=== PATIENT | female | born 1945 | race Two or more races ===

== ENCOUNTER 2023-07-13 17:01 | Emergency (ER) | payer OTHER ==
[~2023-07-13] VITALS: Ht 167.6 cm; Wt 60.0 kg
[2023-07-13 18:13] VITALS: PULSE 105; RESP 20; O2SAT 98
[2023-07-13 18:25] LABS: Hemoglobin 10.8 g/dL (12.2-16.2); Mean Corpuscular Hemoglobin 30.9 pg (28.0-32.0); Mean Corpuscular Hgb Conc. 32.8 g/dL (32.0-36.0); Mean Corpuscular Volume 94.1 fL (80.0-100.0); Red Blood Cells 3.51 10^6/uL (4.0-5.20)
[2023-07-13 18:31] LABS: Basophils % (manual) 0 (0.0-2.0); Blast Cells 0; Eosinophils % (manual) 0 (0-7); Metamyelocytes % 0; Myelocytes % 0; Promyelocytes % 0; Reactive Lymphocytes 0
[2023-07-13 18:52] LABS: Alanine Aminotransferase 21 U/L (7-40); Albumin 2.5 g/dL (3.2-4.8); Alkaline Phosphatase 189 U/L (46-116); Anion Gap 7 (5-15); Aspartate Aminotransferase 36 U/L (13-40); BUN/Creatinine Ratio 16.7 (10.0-20.0); Blood Urea Nitrogen 9 mg/dL (9-23); Carbon Dioxide 24 mmol/L (20-30); Chloride 97 mmol/L (98-107); Glucose 140 mg/dL (74-106); Magnesium 1.5 mg/dL (1.6-2.6); Potassium 3.4 mmol/L (3.5-5.1); Sodium 128 mmol/L (136-145)
[2023-07-13 18:53] LABS: Bilirubin, Total 0.9 mg/dL (0.2-1.0)
[2023-07-13 19:05] LABS: INR 1.41 (0.9-1.15); Prothrombin Time 14.5 sec (9.3-11.8)
[2023-07-13 19:12] LABS: Anisocytosis Slight; Band Neutrophils % (manual) 4; Lymphocytes % (manual) 2 (10.0-50.0); Monocytes % (manual) 6 (0-12); Platelet Estimate Adequate
[2023-07-13 19:57] VITALS: PULSE 99; RESP 13; O2SAT 95
[2023-07-13] MEDS: MAGNESIUM SULFATE 1GM/100ML 100 ML IV SCH ×2 (20:17→21:22)
[2023-07-14] MEDS ORDERED: cefTRIAXone 1GM/50ML D5W 50 ML IV ONE (00:45)
[2023-07-14 01:38] VITALS: BP 147/73; PULSE 95; RESP 15; TEMP 98.4; O2SAT 95
== END 2023-07-14 02:11 | disposition short-term general hospital (02) ==
LOC: EDBD 17:01 → ER 17:01
DX: E87.8 Other disorders of electrolyte and fluid balance, not elsewhere classified (principal); E86.0 Dehydration; C25.9 Malignant neoplasm of pancreas, unspecified; R53.1 Weakness; Z88.6 Allergy status to analgesic agent
CPT/HCPCS: 36415; 71045; 74176; 80053; 83605; 83690; 83735; 84484; 85007; 85027; 85610; 87040; 93005; 96365; 96366; 96367; 99285; J0696; J3475